=== PATIENT | male | born 1945 | race Caucasian/White ===

== ENCOUNTER 2016-07-16 11:21 | Day surgery (SDC) | payer MEDICARE, OTHER ==
--- NOTE | ~2016-07-16 | EGD ---
EGD REPORT [facility] [address] [place] [address] NAME: JMAE BASSETT : [birth year] STATUS : REG [facility]#: [id number] AGE: 70 ADM/REG DATE : 07/16/16 MR#: [id number] REPORT SERV DATE: 07/16/16 DICTATED BY: KAI GARDNER DATE: 07/16/16 REPORT STATUS : Draft TRANSCRIBED BY: [facility] DATE: 07/16/16 Endoscopy Center Patient Name: Jame Bassett Date of : 1945 Attending MD: KAI GARDNER MD Procedure Date No Time: 07/16/2016 Procedure: Upper GI endoscopy Indications: Follow-up of Caicedo's esophagus, Chest pain (non cardiac) Referring MD: Meg Thornton Medicines: Monitored Anesthesia Care Complications: No immediate complications. Procedure: Pre-Anesthesia Assessment: - ASA Grade Assessment: III - A patient with severe systemic disease. After obtaining informed consent, the endoscope was passed under direct vision. Throughout the procedure, the patient's blood pressure, pulse, and oxygen saturations were monitored continuously. The GIF [id number] was introduced through the mouth, and advanced to the second part of duodenum. The upper GI endoscopy was accomplished without difficulty. The patient tolerated the procedure well. Findings: There were esophageal mucosal changes consistent with Caicedo's esophagus present in the lower third of the esophagus. The maximum longitudinal extent of these mucosal changes was 3 cm in length. Mucosa was biopsied with a cold forceps for histology in a targeted manner and in 4 quadrants at intervals of 2 cm at 40 cm from the incisors, at 41 cm from the incisors and at 43 cm from the incisors. Circumferential Caicedo's from 43 to 41 cm and 3 tongues of Caicedo's from 41 to 40 cm. A total of 3 specimen bottles were sent to pathology. A small hiatus hernia was present. nodular mucosa in the duodenal bulb. Biopsies were taken with a cold forceps for histology. The cardia and gastric fundus were normal on retroflexion. 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 Biopsied. - Hiatus hernia. Recommendation: - Patient has a contact number available for emergencies. The signs and symptoms of potential delayed complications were discussed with the patient. Return to EGD REPORT [address] [address] NAME: JAME BASSETT : [birth year] STATUS : REG [facility] PAT#: [id number] AGE: 70 ADM/REG DATE : 07/16/16 MR#: [id number] REPORT SERV DATE: 07/16/16 DICTATED BY: KAI GARDNER DATE: 07/16/16 REPORT STATUS : Draft TRANSCRIBED BY: [employer] DATE: 07/16/16 normal activities tomorrow. Written discharge instructions were provided to the patient. - Regular diet. - Continue present medications. - Follow an antireflux regimen. - Repeat the upper endoscopy in 3 years for surveillance. Procedure Code(s): --- Professional --- 93281, Esophagogastroduodenoscopy, flexible, transoral; with biopsy, single or multiple Diagnosis Code(s): --- Professional --- K22.70, Caicedo's esophagus without dysplasia K44.9, Diaphragmatic hernia without obstruction or gangrene R07.89, Other chest pain CPT copyright 2013 [employer]. All rights reserved. The codes documented in this report are preliminary and upon anthropology faculty member review may be revised to meet current compliance requirements. KAI GARDNER MD 07/16/2016 2:32 PM This report has been signed electronically. Number of Addenda: 0 Note Initiated On: 07/16/2016 2:03 PM Scope Withdrawal Time 0 hours 0 minutes 0 seconds [id number] [place] [id number]
[~2016-07-16 11:21] MED LIST: COREG3 PO; CRESTOR20 MG PO; FERROUS SULF325 M1 PO; FIORICET-COD 51 EACH PO; GLUCOPHAGE1000 MG PO; GLUCOTROL5 PO; LOTE20 PO; NEUR600 PO; PRILO PO; SOMATAB
== END 2016-07-16 23:59 | disposition home health service (06) ==
LOC: DMU 11:21
PROVIDERS: Internal Medicine Gastroenterology
PROC: 0DB98ZX Excision of Duodenum, Via Natural or Artificial Opening Endoscopic, Diagnostic (ICD-10-PCS; 2016-07-16)
PROC: 0DB38ZX Excision of Lower Esophagus, Via Natural or Artificial Opening Endoscopic, Diagnostic (ICD-10-PCS; principal; 2016-07-16 13:00)
DX: K29.80 Duodenitis without bleeding (principal); K44.9 Diaphragmatic hernia without obstruction or gangrene; I10 Essential (primary) hypertension; E78.00 Pure hypercholesterolemia, unspecified; I25.10 Atherosclerotic heart disease of native coronary artery without angina pectoris; K21.9 Gastro-esophageal reflux disease without esophagitis; E11.9 Type 2 diabetes mellitus without complications; M19.90 Unspecified osteoarthritis, unspecified site; E78.5 Hyperlipidemia, unspecified; Z87.891 Personal history of nicotine dependence; Z98.890 Other specified postprocedural states
CPT/HCPCS: 82962; 88305; 88342